=== PATIENT | male | born 1960 | race Caucasian/White ===

== ENCOUNTER 2017-04-28 11:53 | Emergency (ER) | payer MEDICARE, SELFPAY ==
[2017-04-28 11:54] VITALS: BP 143/87; PULSE 109; RESP 18; TEMP 36.8; O2SAT 96; BMI 19.8
--- NOTE | 2017-04-28 12:07 | ED.VISSUMM ---
- ER Visit Summary Date of Service: 04/28/17 Chief Complaint: I am old and cannot walk History of Present Illness: The patient is a 56 M who presents with the above symptoms. He is felt this way for the past 3 years. He states that he feels old and that he cannot walk anymore. He is homeless and he has been traveling around. He states he has been to [facility] and another hospital. He denies a fever or cough. He wants to go to [facility] to get some rest. He denies being suicidal or homicidal. He has no hallucinations. He is a diabetic be is not seen a doctor in a long time. Physical Examination: Vital signs reviewed. HEENT exam unremarkable. Heart is regular rate and rhythm without murmurs. Lungs are clear to auscultation. Abdomen is soft and nontender. Extremities reveal no edema. Skin exam normal. Neurologic exam normal. Test Results: CBC unremarkable. BMP reveals creatinine 1.7, glucose 70. Chest x-ray reveals chronic changes Emergency Department Course and Treatment: The patient ate food here without difficulties. Patient is homeless I feel that the main reason he is here. He wants to go to a rest home to rest. I told him that is not really how it works that he needs a medical reason to be admitted. He is not suicidal or needs a psychiatric admission. I spoke with a public health social worker who spoke with his director of casework services and the director of casework services is going to take him to a homeless residential [facility]. Treatment Plan: [] Disposition: Discharge Impression: Weakness This note was generated with [employer] dictation software. It may contain incorrect words, spelling, and punctuation that were not noted in review of the chart prior to signing ED Disposition - Plan for ED Patient: Chief Complaint: General Illness Referrals: Care Physician,No Primary [Primary Care Provider] -
--- NOTE | 2017-04-28 12:36 | ED.RN ---
Addendum entered by Julissa Saunders 04/28/17 12:38: Patient states that he is homeless and is requesting to go to a rest home because he is to weak to be living on the streets and needs a rest. Original Note: Meat Counter Worker called to speak with the patient.
--- NOTE | 2017-04-28 12:44 | RAD_ITS ---
STUDY: X-RAY CHEST REASON FOR EXAM: Male, 56 years old. Cough. TECHNIQUE: PA and lateral views of the chest. COMPARISON: Comparison is made with prior study dated March 15, 2009. FINDINGS: Hyperinflation. Decreased bronchovascular markings in both lungs suggestive of emphysematous changes. No acute infiltration is seen. There is no demonstrated pleural abnormality. Normal size heart. Normal mediastinum and noel. Normal visualized pulmonary arteries. There is atherosclerotic calcification of the aortic arch with tortuosity. There are degenerative changes of the visualized thoracic spine. Normal visualized ribs, clavicles, and shoulders. There is no demonstrated abnormality of the visualized soft tissue structures of the upper abdomen. RAD/Chest PA and Lateral IMPRESSION: Hyperinflation. Findings suggestive of emphysematous changes. Electronically Signed: Jorge Mcacin MD at 12:58 EST Tel [phone], Service support ,
[2017-04-28 12:51] LABS: Absolute Lymphocyte Count 1.02 X10^3/ul (0.83-4.51); Absolute Neutrophil Count 6.9 X10^3/uL (2.0-7.7); Basophil# 0.04 X10^3/uL; Basophil% 0.5 % (0-1); Eosinophil# 0.04 X10^3/uL; Eosinophils% 0.5 % (0-5); Hematocrit 41.3 % (40-54); Hemoglobin 14.1 g/dl (13.0-16.5); Lymphocyte # 1.02 X10^3/ul (4.0); Lymphocyte % 11.8 % (19-41); Mean Corp Hgb Conc 34.1 g/gl (32-36); Mean Corpuscular Hgb 30.7 pg (27.0-32.0); Mean Platelet Vol. 11.4 fl (6.2-12.0); Monocyte% 8.1 % (0-10); Neutrophil # 6.86 X10^3/uL (2.7-7.7); Platelet Count 221 K/mm3 (150-450); RBC Distribution Width CV 13.6 % (11.6-14.6); RBC Distribution Width SD 44.3 fl (35.1-43.9); Red Blood Count 4.59 M/mm3 (4.6-6.2); White Blood Count 8.7 K/mm3 (4.4-11.0)
[2017-04-28 12:52] LABS: Anion Gap 9 (5-15); BUN 19 mg/dL (7-18); BUN/Creat Ratio 11.2 RATIO (10-20); Calcium,Total 9.1 mg/dL (8.5-10.1); Chloride 100 mmol/L (98-107); EST Glomerular Filtration Rate 44 mL/min (>60); Est Glom Filt Rate - Afr Amer 53 mL/min (>60); Glucose 70 mg/dL (74-106); Potassium 4.1 mmol/L (3.5-5.1); Sodium Level 139 mmol/L (136-145)
[2017-04-28 12:53] LABS: POSITIVE COUNT NO; POSITIVE DIFFERENTIAL NO; POSITIVE MORPHOLOGY NO
[2017-04-28 13:16] VITALS: RESP 16
--- NOTE | 2017-04-28 13:47 | CASEMGMT ---
Social Work Note Face to face with the pt to discuss discharge planning. Pt is alert and oriented x3. Eye contact is poor, but pt able to respond appropriately to inquiries. Pt reports that he has been staying on the streets. Claims that he was staying with a friend up until last month, and that they had a falling out. Confirms that he has been to the [facility] before, but was there this morning and they told him that he was on a do not take list. Inquire if the pt has Medicare and Medicaid and he states that he does not know. Denies having his card(s) stating that they are at [facility] with Isela. Pt denies having any family or friends that live locally, and reports he has nowhere to go at discharge. Placement at a SNF is not an option as the pt does not have any presenting skilled needs, will not require a 3 days stay under his Medicare and does not have active Medicaid to apply for a LOC. Pt provides verbal permission for SW to reach out to agencies he may have services from. Pt thanks SW, and then covers his head with a blanket. Pt made aware that SW is available if needs arise before SW returns. Placed call to [facility] in [place] (an agency that serves needs of DD adults in [facility] with residential housing [group homes], supported living [independent living], and non-medical transportation). No answer and SW left a message requesting a return phone call. ---[phone] Placed call to [facility] who confirm that the pt is not active with Medicaid. States that he would have to apply, and submit a new application for processing if eligible. ---[phone] Placed a call to [facility] and spoke with Stan who states that the pt has case management services and psychiatry services. Reports that the pt last saw Dr. Estes on 01/04/2017 and his trimming caser is [facility] Guerra. Transferred to Ulices who reports that the pt was diagnosed with Schizophrenia with a paranoid specifier. Inquire if they have explored housing through their group homes, and Ulices states that unfortunately the pt is not eligible. Claims that he has been taking the pt around the [facility] to apply for housing. He is unsure if the pt has any family, he thinks he may have a father that lives in the area, but does not have any contact information for him. ---[phone] Placed call to the [facility] and spoke with corporate director who states that they are not able to serve the pt, and he would not be allowed to stay at their facility. SW to continue to follow and assist. ---[phone] Placed call to the [facility] to see if the pt is linked with them in any way and left a vm with the supervisor welding equipment repairer requesting a return phone call. ---[phone] Jadyn Azevedo, SIX COLOR PRESS OPERATOR, CLERICAL ORDER FILLER
--- NOTE | 2017-04-28 14:56 | ED.DEP ---
ED Disposition - Plan for ED Patient: Disposition: Home or Assisted Living Chief Complaint: General Illness Instructions: ED Weakness [facility] Referrals: Care Physician,No Primary [Primary Care Provider] -
--- NOTE | 2017-04-28 15:04 | CASEMGMT ---
Social Work Note Housing options exhausted in [facility]. Discuss with the pt the option of [facility] and he is agreeable. Inform that SW will contact his caser at the counseling center to see if he would be able to transport the pt. Placed call to Ulices Guerra and he states that he will be able to transport the pt. Will call SW back with time able to transport. Updated ED physician and bedside RN. Completed Medicaid [facility] with pt [facility] for [facility]. Jadyn Azevedo, CHIMNEY SWEEPER, TRACK PRODUCTION ENGINEER
--- NOTE | 2017-04-28 15:14 | CASEMGMT ---
Social Work Note Call from [facility] inquiring how late [facility] accepts patients. Placed call to [facility] and spoke with Douglas who confirms that they accept until 18:45 in the evening. Called Ulices back and informed and he reports that he can pick the pt up between 16:00-16:15. Bedside RN updated. Jadyn Azevedo, MOHEL, [employer] INTER[employer]
[2017-04-28 15:31] VITALS: BP 121/77; PULSE 68; RESP 16; O2SAT 98
== END 2017-04-28 15:32 | disposition home or self-care (01) ==
PROVIDERS: Emergency Provider Emergency Medicine
DX: R53.1 Weakness (principal); E11.9 Type 2 diabetes mellitus without complications; Z72.0 Tobacco use; Z59.0 Homelessness
CPT/HCPCS: 71046; 80048; 85025; 99282; A4216

== ENCOUNTER 2018-12-31 12:47 | Emergency (ER) | payer MEDICARE, SELFPAY ==
[2018-12-31 12:49] VITALS: BP 162/113; PULSE 70; RESP 18; TEMP 36.3; O2SAT 98; BMI 20.7
--- NOTE | 2018-12-31 13:33 | ED.DCSUM_ITS ---
History of Present Illness Chief Complaint: Alt LOC Informant: Patient, School Operations Manager Narrative: Patient brought in by EMS after being found on the side of the road. Patient has garbled speech is difficult to understand. It sounds like he is homeless and travels around the area. He was last seen in this ER in April 2017 stating that he was homeless and tired and just needed a place to rest. Per the history in the computer he has a history of seizures, schizophrenia, and diabetes. Patient denies history of seizures to me. He denies pain anywhere but tells me his stomach is upset and does not want to vomit. Past Medical History - Allergies and Home Meds Allergies/Adverse Reactions: Allergies No Known Allergies Allergy (Verified 12/31/18 12:59) Primary Care Physician: Care Physician,No Primary [Primary Care Provider] - Prior records reviewed: Yes Past Medical History: - - Reviewed Lives: Homeless Smoking Status: Smoker, status unknown Review of Systems General: Denies: Fever ENT: Denies: Rhinorrhea, Sore throat Cardiovascular: Denies: Chest pain Respiratory: Denies: Dyspnea Gastrointestinal: Reports: Nausea Skin: Denies: Wounds Neurological: Denies: Headache Physical Exam Vital Signs/Narrative: Vital Signs Temp Pulse Resp BP Pulse Ox 12/31/18 12:49 97.3 F L 70 18 162/113 H 98 Inital Vital Signs reviewed: Yes General: Unkempt, No Acute Distress Eyes: Perrl Cardiovascular: Regular rate, Regular rhythm Respiratory: No distress, CTA bilaterally Abdomen: Soft, Tender - Mild diffuse tenderness., Hypoactive bowel sounds. Negative for: Guarding, Rebound tenderness Extremities: Nontender Skin: Normal color Neurological: - - Patient has garbled speech and is difficult to understand, however when he gets angry he starts to yell and is easily understood. He has no focal neurologic deficits. He was observed ambulating to the restroom and back without difficulty. Psychological: - Diagnostic/Tx/Re-eval - Medical Decision Making Patient refused blood work or nausea medication while the emergency room. He did allow us to check her blood sugar and it was 102. Patient has been up ambulating to the restroom multiple times. He is able to drink without difficulty. He states he does feel better. Social work saw the patient. He refuses to allow her to call the [employer] or help arrange for other places to stay. Patient is referred to follow-up with counseling center as soon as possible. ED Disposition - Plan for ED Patient: Disposition: Home or Assisted Living Diagnosis: Encounter for medical screening examination Referrals: Counseling,Center [GROUP OF PHYSICIANS] - As soon as possible
[2018-12-31 14:31] LABS: Bedside Glucose 102 mg/dL (70-110)
--- NOTE | 2018-12-31 15:22 | ED.RN ---
PT REFUSES ALL CARE. DID ALLOW ANOTHER RN TO COLLECT A BLOOD SUGAR. DENIES ANY NEEDS AT THIS TIME. WILL CONTINUE TO MONITOR. SOCIAL WORK TO SEE PT.
[2018-12-31 15:28] VITALS: RESP 16
--- NOTE | 2018-12-31 15:30 | CM.ED ---
SOCIAL WORK INFORMANT: DR. GOODWIN REASON FOR REFERRAL: D/C PLANNING-PATIENT IS HOMELESS MET WITH PATIENT IN ROOM. INTRODUCED ROLE AND REASON FOR REFERRAL. PATIENT HARD TO UNDERSTAND D/T GARBLED SPEECH. PATIENT DOES REPORT HE IS HOMELESS. INQUIRED ABOUT CONTACTING [facility] FOR PATIENT, PATIENT REFUSED. PATIENT REPORTS DOES FOLLOW WITH THE [facility]. ENCOURAGED PATIENT TO FOLLOW UP SOON POSSIBLE PATIENT IS REFUSING FOR THIS WORKER TO MAKE ANY PHONE CALLS ON HIS BEHALF. UPDATED STAFF AND DR. GOODWIN ON THE ABOVE. Abel CLARKE, STATIONARY EQUIPMENT MECHANIC, UPKEEP WORKER.
[2018-12-31 15:36] LABS: Bacteria 0 SEEN /hpf (None Seen); Mucous, Urine 0 SEEN /hpf (<or=2+); Red Blood Cells-Urine 0 SEEN /hpf (0-5); Squamous Epithelial Cells - UA 0 SEEN /hpf (0-5); White Blood Cells 0 SEEN /hpf (0-5)
--- NOTE | 2018-12-31 16:00 | ED.RN ---
DISCHARGE INSTRUCTIONS GIVEN TO AND REVIEWED WITH PATIENT, PATIENT DENIES QUESTIONS OR CONCERNS AND VOICES UNDERSTANDING OF DISCHARGE INSTRUCTIONS. PT AMBULATES OUT OF ROOM WITHOUT DIFFICULTY.
[2018-12-31 16:28] LABS: Color, Urine Straw (Yellow); Glucose, Dipstick Normal (Normal); Ketone-Dipstick Negative (Negative); Leukocyte Esterase-Dipstick Negative /ul (Negative); Nitrite-Dipstick Negative (Negative); Occult Blood-Urine 10 /ul (Negative); Protein-Dipstick 100 mg/dl (Negative); Urine Bilirubin Dipstick Negative (Negative); Urine Clarity Clear (Clear); Urine Urobilinogen Normal (Normal)
== END 2018-12-31 16:01 | disposition home or self-care (01) ==
PROVIDERS: Emergency Provider Emergency Medicine
DX: Z00.00 Encounter for general adult medical examination without abnormal findings (principal); Z59.0 Homelessness; F17.210 Nicotine dependence, cigarettes, uncomplicated; E11.9 Type 2 diabetes mellitus without complications; F20.9 Schizophrenia, unspecified; R56.9 Unspecified convulsions
CPT/HCPCS: 81001; 82962; 99284

== ENCOUNTER 2019-01-06 04:27 | Emergency (ER) | payer MEDICARE, SELFPAY ==
[2019-01-06 04:28] VITALS: BP 156/104; PULSE 65; RESP 16; TEMP 36.4; O2SAT 92; BMI 23.3
[2019-01-06 04:56] LABS: Bedside Glucose 119 mg/dL (70-110)
--- NOTE | 2019-01-06 05:17 | ED.DCSUM_ITS ---
- ER Visit Summary Date of Service: 01/06/19 Chief Complaint: Homeless History of Present Illness: The patient is a 58 M who apparently was sitting in the parking lot of [place] tonight when somebody was pumping gas called the ambulance for him. Patient reportedly was unable to ambulate so EMS brought him to the emergency department. Arrival here patient has garbled speech which is not new. He was seen 6 days ago and refused any care. He apparently is homeless. He tells me that he has no complaints, no pain, and does not wish to be here. I asked him to write down why he is here and he refuses. He refuses to sit himself up in the bed. He refuses to ambulate. He refuses to take off his close. Physical Examination: Afebrile vital signs stable Gen: Well-nourished well-developed unkempt Head: Normocephalic atraumatic Eyes: Perrl EOMI ENT: TMs clear no rhinorrhea moist mucous membranes Neck: Supple no lymphadenopathy no JVD nontender CVS: Regular rate rhythm no murmurs normal S1-S2 Respiratory: No distress clear to auscultation bilaterally chest nontender Abdomen: Soft nontender nondistended normal bowel sounds no masses Back: Nontender Extremity: Nontender no edema Skin: Normal color no rash Neuro: alert moves all extremities x4. At times I can clearly understand the patient at other times it is more garbled speech. Test Results: Accu-Chek was 119. Emergency Department Course and Treatment: Patient states very clearly to me that he has no complaints no pain does not wish testing and is not sure why he is here. Nursing asked him to walk and he states that he cannot. I informed the patient that this is not a hotel and that he either needs to be seen for medical emergency evaluation or he does not. He was then able to get himself out of the bed and get himself dressed. He did give me permission to go through his wallet worse he has numerous community out reach services business cards. Impression: 1. Dysarthria This note was generated with [employer] dictation software. It may contain incorrect words, spelling, and punctuation that were not noted in review of the chart prior to signing ED Disposition - Plan for ED Patient: Disposition: Home or Assisted Living Instructions: Dysarthria: Improving Speech Referrals: [facility] [NON-STAFF] - As soon as possible
[2019-01-06 05:30] VITALS: PULSE 96; RESP 16; O2SAT 96
== END 2019-01-06 05:31 | disposition home or self-care (01) ==
PROVIDERS: Emergency Provider Emergency Medicine
DX: R47.1 Dysarthria and anarthria (principal); Z59.0 Homelessness; E11.9 Type 2 diabetes mellitus without complications
CPT/HCPCS: 82962; 99284